=== PATIENT | female | born 1990 | race Caucasian/White ===

== ENCOUNTER 2021-11-14 09:24 | Inpatient (IN) | payer OTHER ==
[~2021-11-14] VITALS: Ht 172.7 cm; Wt 87.3 kg
[2021-11-17] VITALS (17 sets, daily range): BP systolic 96–127; BP diastolic 51–91; PULSE 72–116; TEMP 97.3–98.2
--- NOTE | 2021-11-17 10:30 | NUR ---
PT AMBULATORY TO UNIT FOR SCHEDULED REPEAT CSECTION. ORIENTED TO LABOR WOOD ROOM AND POC. PLACED ON EFM/TOCO. CATEGORY 1 STRIP NOTED. PT DENIES CONTRACTIONS OR LOF, AND REPORTS POSITIVE MOVEMENT. VITAL SIGNS STABLE. ALL CONSENTS SIGNED. PT IN STABLE CONDITION AT THIS TIME.
[2021-11-17] MEDS ORDERED: PRENATAL PO (10:43)
[2021-11-17 10:57] LABS: BASO # 0.1 K/mm3 (0.0-0.2); BASO % 0.6 % (0.0-2.0); EOS # 0.3 K/mm3 (0.0-0.7); EOS % 2.3 % (0.0-4.0); GRAN # 7.5 K/mm3 (1.4-6.5); GRAN % 69.4 % (42.2-75.2); LYMPH # 2.2 K/mm3 (1.2-3.4); LYMPH % 20.6 % (20.0-51.0); MEAN CELL VOLUME 84 fl (80.0-100.0); MEAN CORPUSCULAR HEMOGLOBIN 29 pg (27-31); MEAN CORPUSCULAR HGB CONC 34 g/dl (33.0-37.0); MEAN PLATELET VOLUME 11.2 fl (7.4-10.4); MONO # 0.7 K/mm3 (0.1-0.6); MONO % 6.7 % (1.7-9.3); PLATELET COUNT 203 K/mm3 (130-400); RED BLOOD COUNT 4.53 M/mm3 (4.10-5.30); REDCELL DISTRIBUTION WIDTH-CV 13.9 % (11.5-14.5)
--- NOTE | 2021-11-17 15:30 | NUR ---
PT NOTIFIED OF [facility] TRANSFER TEAM ARRIVAL TO TRANSFER TO [place] FOR FURTHER NICU CARES. PT TEARFUL BUT STABLE. FOB REMAINS AT [facility]ED[facility] THROUGHOUT TRANSFER PROCESS. PT TO NURSERY PRIOR TO ENCOUNTER TO VISIT BABY, BUT REQUESTING TO REMAIN IN ROOM AT THIS TIME SHE FEELS "HELPLESS" WHILE IN THE NURSERY. PO PERCOCET REQUESTED AND ADMINISTERED FOR ABDOMINAL/INCISIONAL PAIN. UNABLE TO ELEVATE LEGS, REPORTS BLE TO REMAIN "VERY HEAVY." VITAL SIGNS STABLE. LOCHIA SCANT, NO CLOTS NOTED. FUNDUS FIRM, 2FB BELOW UMBILICUS. DENIES FURTHER NEEDS AT THIS TIME.
--- NOTE | 2021-11-17 16:11 | NUR ---
[facility] TRANSFER TEAM IN PT'S ROOM AT THIS TIME WITH PRIOR TO TRANSFER TO ALLOW PT TO SEE HER BEFORE SHE LEAVES. PT TEARFUL BUT STABLE. FATHER LEAVING TO REMAIN AT [facility] BED[facility]IDE UPON ARRIVAL TO [facility]. PT DENIES NEEDS AT THIS TIME, APPRECIATIVE OF CARES RECIEVED.
--- NOTE | 2021-11-17 19:54 | NUR ---
1830 TOOK OVER CARE AND RECEIVED BEDSIDE REPORT. DISCUSSED BABY BEING TRANSFERRED AND UPDATED ON BABY STATUS. DISCUSSED PUMPING AND MILK SUPPLY AND STORAGE. INFORMED PATIENT OF PLAN OF CARE.
--- NOTE | 2021-11-17 23:45 | NUR ---
2230 PT REQUESTED BREAST PUMP. THIS RN SET UP PUMP AND REFRESHED MOM ON HOW TO USE. 2250 MOM FINISHED PUMP. THIS RN LABELED AND PUT MILK IN NURSERY FRIDGE.
[2021-11-18 03:30] VITALS: BP 96/52; PULSE 61; TEMP 97.6
[2021-11-18 07:30] VITALS: BP 91/64; PULSE 85; TEMP 97.5
[2021-11-18] MEDS ORDERED: IBU800 M1 PO (08:40)
[2021-11-18] MEDS ORDERED: PERCOCET 325 MG1 TA2 PO (08:41)
--- NOTE | 2021-11-18 10:15 | NUR ---
Initial visit; Patient thanked [employer] for offering congratulations and God's blessings for their daughter. [employer]inter thanked family for choosing our hospital.
--- NOTE | 2021-11-18 10:20 | NUR ---
Initial visit; Patient thanked Staff Home Therapy Rn for offering encouragement and God's blessings for her daughter who was transferred to [employer]. Staff Home Therapy Rn will keep the family in her prayers.
[2021-11-18 16:28] VITALS: BP 94/49; PULSE 98; TEMP 98.1
[2021-11-18 20:00] VITALS: BP 100/63; PULSE 75; TEMP 97.8
--- NOTE | 2021-11-19 08:30 | NUR ---
Rests in bed, alert, pumping. 0840 Percocet 5/325 mg one given as ordered and per request. Denies other needs at this time.
--- NOTE | 2021-11-19 09:59 | NUR ---
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
[2021-11-19 10:00] VITALS: BP 94/60; PULSE 82; TEMP 98.2
--- NOTE | 2021-11-19 13:30 | NUR ---
Rests in bed, alert. Discharge instructions given, verbalizes understanding. Percocet 5/325 mg. one given per request and as ordered.
== END 2021-11-19 13:36 | disposition home or self-care (01) | DRG 788 ==
LOC: LDR 11-17 09:23 → OB 11-17 10:15
PROVIDERS: ADMIT Obstetrics & Gynecology
PROC: 10D00Z1 Extraction of Products of Conception, Low, Open Approach (ICD-10-PCS; principal; 2021-11-17)
DX: O34.211 Maternal care for low transverse scar from previous cesarean delivery (principal); O99.344 Other mental disorders complicating childbirth; F32.A Depression, unspecified; F41.9 Anxiety disorder, unspecified; O69.81X0 Labor and delivery complicated by cord around neck, without compression, not applicable or unspecified; Z37.0 Single live birth; Z3A.39 39 weeks gestation of pregnancy; Z88.0 Allergy status to penicillin
CPT/HCPCS: J0690; J1100; J1885; J2405; J2765; J7120